=== PATIENT | female | born 1985 ===

== ENCOUNTER 2025-10-07 08:45 | Inpatient (IN) | payer OTHER ==
[~2025-10-07] VITALS: Ht 157.5 cm; Wt 63.0 kg
[2025-10-10 08:59] VITALS: BP 143/84
[2025-10-10 09:12] LABS: URINE APPEARANCE Clear; URINE BILIRRUBIN Negative (NEGATIVE); URINE BLOOD Large; URINE COLOR Yellow; URINE GLUCOSE Negative (NEGATIVE); URINE KETONE Negative (NEGATIVE); URINE LEUKOCYTE Negative; URINE NITRATE Negative; URINE PROTEIN Negative (NEGATIVE); URINE UROBILINOGEN 0.2 E.U./dl
[2025-10-10 09:14] LABS: URINE BACTERIA 80.0 uL (0.0-1933); URINE EPITHELIAL CELLS 4.5 uL (0.0-38.8); URINE RBC 44.1 uL (0.0-20.8); URINE WBC 2.7 uL (0.0-23.2)
[2025-10-10 09:16] LABS: BASO % 0.7 % (0.1-1.2); EOS # 0.11 (0.04-0.54); EOS % 2.0 % (0.7-7.0); LYMPH # 1.37 (1.18-3.74); LYMPH % 25.2 % (19.3-53.1); MEAN PLATELET VOLUME 10.60 fl (9.4-12.4); MONO # 0.30 (0.24-0.82); MONO % 5.5 % (4.7-12.5); NEUT # 3.61 (1.56-6.13); NEUT % 66.4 % (34.0-71.1); RED CELL DISTRIBUTION WIDTH 18.6 % (11.6-14.4)
[2025-10-10 09:18] LABS: URINE CAST 0.00 uL (0.0-1.40)
[2025-10-10 09:37] LABS: INR 0.99
[2025-10-10 10:07] LABS: ALT/SGPT 23.0 U/L (12-78); AST/SGOT 15.0 U/L (15-37); BILIRUBIN TOTAL 0.36 mg/dL (0.3-1.2); BUN CREA RATIO 32.0 (7.0-25.0); CREATININE SERUM 0.47 mg/dL (0.55-1.02); GFR 146.03; GLOBULINA 4.2 G/DL (2.4-3.5); GLUCOSE FASTING 86.0 mg/dL (65-100); OSMOLALITY SERUM 285.0 MOSM/KG (275-295)
[2025-10-10 19:25] VITALS: BP 140/89
[2025-10-11] VITALS: BP 96/61
[2025-10-11 08:47] VITALS: BP 113/72
[2025-10-11 16:57] VITALS: BP 125/80
[2025-10-12] VITALS: BP 95/53
[2025-10-12 01:17] LABS: BASO % 0.6 % (0.1-1.2); EOS # 0.14 (0.04-0.54); EOS % 2.2 % (0.7-7.0); LYMPH # 2.12 (1.18-3.74); LYMPH % 33.2 % (19.3-53.1); MEAN PLATELET VOLUME 10.30 fl (9.4-12.4); MONO # 0.43 (0.24-0.82); MONO % 6.7 % (4.7-12.5); NEUT # 3.64 (1.56-6.13); NEUT % 57.1 % (34.0-71.1); RED CELL DISTRIBUTION WIDTH 18.7 % (11.6-14.4)
[2025-10-12 08:00] VITALS: BP 140/80
[2025-10-12] MEDS ORDERED: CEFOXITIN SODIUM 2,000 MG VIAL IV ONE (15:12)
[2025-10-12] MEDS ORDERED: POVIDONE-IODINE 118 ML BOTT TOP ONE (17:23)
[2025-10-12] MEDS ORDERED: KETOROLAC TROMETHAMINE 60 MG VIAL IM STA (20:02)
[2025-10-12] MEDS ORDERED: MORPHINE SULFATE 4 MG/ML VIAL IV PRN (20:15)
[2025-10-12] MEDS ORDERED: SUGAMMADEX SODIUM 200 MG/2 ML VIAL IV SCH (20:15)
[2025-10-12] MEDS ORDERED: RINGERS SOLUTION,LACTATED 1,000 ML IV SCH (20:15)
[2025-10-12 22:02] VITALS: BP 110/70
[2025-10-12 22:05] LABS: BASO % 0.3 % (0.1-1.2); EOS # 0.01 (0.04-0.54); EOS % 0.1 % (0.7-7.0); LYMPH # 1.06 (1.18-3.74); LYMPH % 6.5 % (19.3-53.1); MEAN PLATELET VOLUME 10.20 fl (9.4-12.4); MONO # 0.58 (0.24-0.82); MONO % 3.6 % (4.7-12.5); NEUT # 14.55 (1.56-6.13); NEUT % 89.2 % (34.0-71.1); RED CELL DISTRIBUTION WIDTH 19.4 % (11.6-14.4)
[2025-10-13] VITALS: BP 139/77
[2025-10-13 08:00] VITALS: BP 129/64
[2025-10-13] MEDS ORDERED: ACETAMINOPHEN 325 MG TABLET PO PRN (09:00)
[2025-10-13] MEDS ORDERED: OxyCODONE HCL 5 MG TABLET (ROXICODONE) PO PRN (09:00)
[2025-10-13 16:00] VITALS: BP 101/69
[2025-10-14] VITALS: BP 96/55
[2025-10-14 08:00] VITALS: BP 123/78
[2025-10-14] MEDS ORDERED: IBUPROFEN800 MG PO (09:52)
== END 2025-10-14 14:06 | disposition home or self-care (01) | DRG 743 ==
LOC: OB/GYN 10-10 17:16
PROVIDERS: ADMIT Obstetrics & Gynecology; ATTEND Obstetrics & Gynecology
PROC: 30233N1 Transfusion of Nonautologous Red Blood Cells into Peripheral Vein, Percutaneous Approach (ICD-10-PCS; 2025-10-11)
PROC: 0UT70ZZ Resection of Bilateral Fallopian Tubes, Open Approach (ICD-10-PCS; 2025-10-12)
PROC: 0UT90ZZ Resection of Uterus, Open Approach (ICD-10-PCS; principal; 2025-10-12 07:00)
DX: D25.1 Intramural leiomyoma of uterus (principal); Z90.710 Acquired absence of both cervix and uterus; D64.9 Anemia, unspecified; N93.9 Abnormal uterine and vaginal bleeding, unspecified